=== PATIENT | female | born 1970 | race Caucasian/White ===

== ENCOUNTER → 2018-11-28 | Outpatient (CLI) | payer OTHER ==
[~2018-11-28] MED LIST: ALDOMET250 MG PO; AUGMENTIN 875-1 EACH PO
== END ==
LOC: M.ULTRA 11-24 17:26
DX: K76.0 Fatty (change of) liver, not elsewhere classified (principal); N85.8 Other specified noninflammatory disorders of uterus; R16.0 Hepatomegaly, not elsewhere classified; Z88.8 Allergy status to other drugs, medicaments and biological substances; Z88.2 Allergy status to sulfonamides